=== PATIENT | female | born 1985 | race Two or more races ===

== ENCOUNTER 2021-07-20 13:48 | Emergency (ER) | payer MEDICAID, OTHER ==
[~2021-07-20] VITALS: Ht 167.6 cm; Wt 63.5 kg
[2021-07-20 19:40] VITALS: BP 120/82
== END 2021-07-20 19:50 | disposition home or self-care (01) ==
LOC: ER 13:48
DX: U07.1 COVID-19 (principal); J18.9 Pneumonia, unspecified organism
CPT/HCPCS: 36415; 71045; 87426